=== PATIENT | female | born 1960 | race Caucasian/White ===

== ENCOUNTER 2018-09-08 11:46 | Emergency (ER) | payer SELFPAY ==
[~2018-09-08] VITALS: Wt 57.7 kg
[2018-09-08 11:49] VITALS: Wt 57.7 kg
[2018-09-08] MEDS ORDERED: NAPR-688 PO (12:26)
[2018-09-08] MEDS ORDERED: KETOROLAC 15 MG INJ IV STA (12:27)
--- NOTE | 2018-09-08 12:59 | ERD ---
ER Documentation Chief Complaint Chief Complaint hx stroke 2011 w resid l. sided wkns/numb,cc l. sided"circulatory pain"x1mo HPI This is a 57-year-old woman complaining of left body pain mostly occurring at night, she states she feels the blood circulating throughout her body. She has had a stroke in the past and has residual left upper and lower extremity paresis. She denies dysuria, no chest pain or shortness of breath, no cough, no fevers or chills, no headache or blurry vision ROS All systems reviewed and are negative except as per history of present illness. Medications Home Meds Active Scripts Naproxen* (Naproxen*) 500 Mg Tablet, 500 MG PO BID PRN for PAIN, #30 TAB Prov:ENID OJEDA MD 09/08/18 Allergies Allergies: Coded Allergies: No Known Allergy (Unverified , 09/08/18) PMhx/Soc History of Surgery: No Hx Neurological Disorder: Yes (stroke 2011) Hx Miscellaneous Medical Probl: Yes (HTN, DM) Hx Alcohol Use: No Hx Substance Use: No Hx Tobacco Use: No Smoking Status: Never smoker Physical Exam Vitals Vital Signs Date Temp Pulse Resp B/P (MAP) Pulse Ox O2 O2 Flow FiO2 Time Delivery Rate 09/08/18 98.3 70 18 134/85 100 13:24 (101) 09/08/18 98.0 89 20 127/80 99 11:49 (96) Physical Exam GENERAL: Well-developed, well-nourished, appears anxious, afebrile NEURO: Alert and oriented 3, pupils equal round reactive to light, paresis to the left upper and lower extremity consistent with her history, strength in the right side 5/5 CARDIAC: Regular rate and rhythm, no murmurs rubs or gallops LUNGS: Clear bilaterally no wheezing crackles or stridor ABDOMEN: Soft nontender, no guarding, no rigidity, no rebound, no psoas sign no obturator sign. SKIN: Warm and dry to touch, no abrasions, contusions, or hematomas, no lacerations, no ecchymosis, no target lesions, and without ulcers EXTREMITIES: No clubbing cyanosis or edema, calves are bilaterally symmetrical, no Homans sign, no popliteal cord sign. Distal pulses equal and bilateral PSYCH: Appears anxious Results 24 hrs Current Medications Medications Dose Sig/Daisy Start Time Status Last (Trade) Ordered Route PRN Stop Time Admin Dose Reason Admin Ketorolac 15 mg ONCE STAT 09/08/18 DC 09/08/18 Tromethamine IV 12:27 09/08/18 12:31 (Toradol) 12:28 Procedures/MDM I provided reassurance to the patient she has no concerning signs on physical exam and vital signs are normal. Her neurologic issues and paresis are chronic and stable and it seems she has had these symptoms multiple times in the past. She does appear anxious and I suspect anxiety is contributing to her symptoms although I will defer to her PMD for outpatient management and possible medical therapy. I administered Toradol 50 mg IV x1 for complaints of left-sided body pain. Patient feels much better at this time, and vital signs are normal, symptoms have improved. I did give strict instructions to return to the ED if symptoms continue or worsen, patient will otherwise follow-up with primary care physician. Patient understood instructions and agreed to plan. Disclaimer: Inadvertent spelling and grammatical errors are likely due to EHR/dictation software use and do not reflect on the overall quality of patient care. Also, please note that the electronic time recorded on this note does not necessarily reflect the actual time of the patient encounter. Departure Diagnosis: Primary Impression: Pain of left side of body Additional Impression: Acute anxiety Condition: Good Patient Instructions: Pain Management, Pain, Uncertain Cause (Acute) ENID OJEDA MD Sep 08, 2018 12:59
[2018-09-08 13:24] VITALS: BP 134/85; PULSE 70; RESP 18
== END 2018-09-08 13:25 | disposition home or self-care (01) ==
LOC: E/R 11:46
DX: R52 Pain, unspecified (principal); I10 Essential (primary) hypertension; E11.9 Type 2 diabetes mellitus without complications; F41.9 Anxiety disorder, unspecified; Z86.73 Personal history of transient ischemic attack (TIA), and cerebral infarction without residual deficits
CPT/HCPCS: 96374; 99284; J1885